=== PATIENT | male | born 1980 | race African-American/Black ===

== ENCOUNTER 2019-02-24 23:36 | Emergency (ER) | payer SELFPAY | END 2019-02-25 00:54 | disposition home or self-care (01) | LOC: ERS 23:36 → EDBD 23:36 → ERS 02-25 00:54 | DX: S61.412A Laceration without foreign body of left hand, initial encounter (principal); Y04.0XXA Assault by unarmed brawl or fight, initial encounter | CPT/HCPCS: 12001 ==

== ENCOUNTER 2019-05-22 14:49 | Emergency (ER) | payer SELFPAY | END 2019-05-22 16:00 | disposition home or self-care (01) | LOC: ERS 14:49 | DX: S50.12XA Contusion of left forearm, initial encounter (principal); X58.XXXA Exposure to other specified factors, initial encounter | CPT/HCPCS: 99283 ==

== ENCOUNTER 2019-06-21 09:11 | Emergency (ER) | payer SELFPAY ==
--- NOTE | 2019-06-21 09:59 | RAD ---
Radiograph right hand 3 views: HISTORY: 39-year-old male with right hand pain FINDINGS: No fracture or dislocation. No high-grade DJD. Bone mineralization normal. No periostitis or permeati ve lesion. IMPRESSION: Negative
== END 2019-06-21 11:00 | disposition home or self-care (01) ==
LOC: ERS 09:11
DX: M79.641 Pain in right hand (principal)